=== PATIENT | male | born 1945 | race Caucasian/White ===

== ENCOUNTER → 2023-07-18 07:53 | Outpatient (REF) | payer MEDICARE, OTHER, SELFPAY | LOC: RAD 07:53 | PROVIDERS: ATTENDING PHYSICIAN Internal Medicine Hematology & Oncology; FAMILY PHYSICIAN Family Medicine | DX: C34.31 Malignant neoplasm of lower lobe, right bronchus or lung (principal) | CPT/HCPCS: 71260; Q9967 ==

== ENCOUNTER → 2024-01-07 07:26 | Outpatient (REF) | payer MEDICARE, OTHER, SELFPAY ==
[2024-01-07 08:07] LABS: % Basophils 0.3 % (0-2); % Eosinophils 3.8 % (0-6); % Immature Granulocytes 0.5 % (0-0.5); % Lymphocytes 14.6 % (20.5-51.1); % Monocytes 12.3 % (1.7-9.3); % Neutrophils 68.5 % (42.2-75.2); Absolute Eosinophils 0.2 10^3/uL (0-0.7); Absolute Lymphocytes 0.9 10^3/uL (1.2-3.4); Absolute Monocytes 0.8 10^3/uL (0.1-0.6); Absolute Neutrophils 4.3 10^3/uL (1.4-6.5); Hemoglobin 11.7 g/dL (13.0-18.0); Mean Corp Hgb Conc. 32.5 g/dL (33.0-37.0); Mean Corpuscular Hgb 27.5 pg (27.0-31.0); Mean Corpuscular Volume 84.5 fL (80.0-94.0); Mean Platelet Volume 9.5 fL (7.4-10.4); Nucleated Red Blood Cells % 0 % (-); Platelet Count 257 10^3/uL (130-400); Red Blood Cell Count 4.26 10^6/uL (4.70-6.10); Red Cell Dist. Width 14.4 % (11.5-14.5); White Blood Cell Count 6.3 10^3/uL (4.8-10.8)
[2024-01-07 08:30] LABS: ALT (SGPT) 18 U/L (0-50); AST (SGOT) 18 U/L (17-59); Albumin 3.7 g/dl (3.5-5.0); Alkaline Phosphatase 83 U/L (38-126); Blood Urea Nitrogen 32 mg/dl (9-20); Calcium 9.1 mg/dl (8.4-10.2); Carbon Dioxide 23 mmol/L (22-30); Chloride 106 mmol/L (98-107); Glucose 122 mg/dl (70-99); Potassium 4.7 mmol/L (3.5-5.1); Sodium 138 mmol/L (135-145); Total Bilirubin 0.3 mg/dl (0.2-1.3); Total Protein 6.1 g/dl (6.3-8.2); eGFR 50.81
== END ==
LOC: REG 07:26
PROVIDERS: ATTENDING PHYSICIAN Internal Medicine Hematology & Oncology; FAMILY PHYSICIAN Family Medicine
DX: C34.31 Malignant neoplasm of lower lobe, right bronchus or lung (principal)
CPT/HCPCS: 36415; 80053; 85025

== ENCOUNTER → 2024-01-27 08:27 | Outpatient (REF) | payer MEDICARE, OTHER, SELFPAY | LOC: RAD 08:27 | PROVIDERS: ATTENDING PHYSICIAN Internal Medicine Hematology & Oncology; FAMILY PHYSICIAN Family Medicine | DX: C34.31 Malignant neoplasm of lower lobe, right bronchus or lung (principal) | CPT/HCPCS: 71260; 74177; Q9967 ==

== ENCOUNTER → 2024-08-03 07:23 | Outpatient (REF) | payer MEDICARE, OTHER, SELFPAY ==
[2024-08-03 08:36] LABS: % Basophils 0.3 % (0-2); % Eosinophils 3.2 % (0-6); % Immature Granulocytes 0.5 % (0-0.5); % Lymphocytes 11.8 % (20.5-51.1); % Neutrophils 73.2 % (42.2-75.2); Absolute Eosinophils 0.3 10^3/uL (0-0.7); Absolute Lymphocytes 0.9 10^3/uL (1.2-3.4); Absolute Monocytes 0.9 10^3/uL (0.1-0.6); Absolute Neutrophils 5.6 10^3/uL (1.4-6.5); Hematocrit 43.8 % (39.0-52.0); Hemoglobin 14.2 g/dL (13.0-18.0); Mean Corp Hgb Conc. 32.4 g/dL (33.0-37.0); Mean Corpuscular Hgb 27.7 pg (27.0-31.0); Mean Corpuscular Volume 85.5 fL (80.0-94.0); Mean Platelet Volume 9.7 fL (7.4-10.4); Nucleated Red Blood Cells % 0 % (-); Platelet Count 256 10^3/uL (130-400); Red Blood Cell Count 5.12 10^6/uL (4.70-6.10); Red Cell Dist. Width 14.3 % (11.5-14.5); White Blood Cell Count 7.7 10^3/uL (4.8-10.8)
[2024-08-03 09:32] LABS: ALT (SGPT) 24 U/L (0-50); Albumin 3.9 g/dl (3.5-5.0); Alkaline Phosphatase 94 U/L (38-126); Blood Urea Nitrogen 29 mg/dl (9-20); Calcium 9.2 mg/dl (8.4-10.2); Carbon Dioxide 27 mmol/L (22-30); Chloride 104 mmol/L (98-107); Glucose 129 mg/dl (70-99); Sodium 140 mmol/L (135-145); Total Bilirubin 0.5 mg/dl (0.2-1.3); Total Protein 6.5 g/dl (6.3-8.2); eGFR 43.29
[2024-08-03 09:54] LABS: AST (SGOT) 20 U/L (17-59)
== END ==
LOC: REG 07:23
PROVIDERS: ATTENDING PHYSICIAN Internal Medicine Hematology & Oncology
DX: C34.31 Malignant neoplasm of lower lobe, right bronchus or lung (principal)
CPT/HCPCS: 36415; 80053; 85025

== ENCOUNTER → 2024-08-17 06:45 | Outpatient (REF) | payer MEDICARE, OTHER, SELFPAY | LOC: RAD 06:45 | PROVIDERS: ATTENDING PHYSICIAN Internal Medicine Hematology & Oncology; FAMILY PHYSICIAN Physician Assistant Medical | DX: C34.31 Malignant neoplasm of lower lobe, right bronchus or lung (principal) | CPT/HCPCS: 71260; Q9967 ==

== ENCOUNTER → 2024-12-28 07:49 | Outpatient (REF) | payer MEDICARE, OTHER, SELFPAY | LOC: RAD 07:49 | PROVIDERS: ATTENDING PHYSICIAN Internal Medicine Hematology & Oncology; FAMILY PHYSICIAN Physician Assistant Medical | DX: C34.31 Malignant neoplasm of lower lobe, right bronchus or lung (principal) | CPT/HCPCS: 71260; 74177; Q9967 ==